=== PATIENT | female | born 1980 | race Caucasian/White ===

== ENCOUNTER → 2019-10-27 12:39 | Outpatient (CLI) | payer BC, SELFPAY | PROVIDERS: Visit Provider Obstetrics & Gynecology | DX: Z11.59 Encounter for screening for other viral diseases (principal) | CPT/HCPCS: 87635; G2023; U0003 ==

== ENCOUNTER 2019-11-02 07:03 | Inpatient (IN) | payer BC, SELFPAY ==
[2019-11-02] VITALS (43 sets, daily range): BP systolic 100–137; BP diastolic 56–87; PULSE 69–118; RESP 18; TEMP 36.3–37.4; O2SAT 81–100; BMI 30.4
[2019-11-02] MEDS: Lactated Ringers 1,000 ML 50 ML IV (07:50)
[2019-11-02] MEDS: Lactated Ringers 500 ML 999 ML IV ×3 (07:52→17:41)
--- NOTE | 2019-11-02 08:06 | PCM.HP.OB ---
- Problem List (1) 39 weeks gestation of Status: Acute (2) resulting from assisted reproductive technology Status: Acute (3) AMA (advanced maternal age) multigravida 35+ Status: Acute History Date of Admission: 11/02/19 Final BERTRAND: 11/09/19 Gestational age: 39 Weeks and 0 Days History of this : This is a 39 year-old, G 5, P 3013, at 39 weeks gestational age who presents for scheduled induction for AMA. Allergies No Known Allergies Allergy (Verified 11/11/16 11:44) Home Medications: Home Medications Prenatabs FA 1 tab PO DAILY 11/02/19 Smoking Status: Former smoker Number of Fetus(es): 1 NST - FHR Rate Baby A FHR Category:: Category I History Past Pregnancies: Past Pregnancies Delivery Date Name GA/ Weeks Outcome Route Wt Infant Sex Labor Length Anesthesia Delivery Location Provider FOB Labs: GBS neg See [facility] record Expected Delivery Method: Spontaneous Vaginal Physical Exam Vitals: Vital Signs Temp Pulse BP Pulse Ox 97.4 F L 91 122/87 H 98 11/02/19 07:26 11/02/19 07:26 11/02/19 07:26 11/02/19 07:26 General: Alert, No apparent distress HEENT: Atraumatic Abdomen: Soft, Gravid Extremities:: No edema Neurological: Neuro grossly intact HEAD SCORER: Normal external genitalia Estimated gestational size: Appropriate for gestational size Presentation: Cephalic Cervix Dilation (cm): 1.5 Station: -2 Effacement (%): 60 Assessment/Plan All Active Problems 39 weeks gestation of (Acute) resulting from assisted reproductive technology (Acute) AMA (advanced maternal age) multigravida 35+ (Acute) This is a 39 year-old, G 5, P 3013, at 39 weeks gestational age who presents for scheduled induction for AMA. - Admit for routine intrapartum care - GBS negative - Pitocin - EFW anticipated to be < 4500g and pelvis adequate. Anticipate
[2019-11-02 08:07] LABS: Absolute Neutrophil Count 9.2 X10^3/uL (2.0-7.7); Basophil# 0.03 X10^3/uL; Basophil% 0.3 % (0-1); Eosinophil# 0.06 X10^3/uL; Eosinophils% 0.5 % (0-5); Hemoglobin 10.6 g/dL (12.0-15.0); Lymphocyte % 12.2 % (19-41); Mean Corp Hgb Conc 30.3 g/dL (32-36); Mean Corpuscular Hgb 24.8 pg (27.0-32.0); Mean Platelet Vol. 12.7 fl (6.2-12.0); Monocyte# 0.75 X10^3/uL; Monocyte% 6.5 % (0-10); NRBC Flagged by Analyzer 0 % (0-5); Neutrophil # 9.22 X10^3/uL (2.7-7.7); Platelet Count 188 K/mm3 (150-450); RBC Distribution Width CV 14.8 % (11.6-14.6); RBC Distribution Width SD 44.3 fl (35.1-43.9); Red Blood Count 4.27 M/mm3 (4.2-5.4); White Blood Count 11.5 K/mm3 (4.4-11.0)
[2019-11-02] MEDS: Oxytocin 30 units/NS 500 ml 30 UNITS/500 ML IV.SOLN IV (08:10)
[2019-11-02] MEDS: fentaNYL-bupivacaine (epidural) 100 ML BAG EPIDURAL ×2 (09:45→14:13)
--- NOTE | 2019-11-02 11:28 | PCM.PN.BLA ---
Progress Note Pt comfortable with epidural. Cvx 2/50/-2, head well applied. AROM performed for clear fluid. IUPC and FSE placed. Continue pit induction. STROKE Vital Signs/Narrative: Vital Signs Temp Pulse BP Pulse Ox 11/02/19 11:27 85 105/64 11/02/19 10:40 75 120/71 98 11/02/19 10:39 97.5 F L 11/02/19 10:15 78 126/73 H 11/02/19 10:11 91 118/70 11/02/19 10:04 89 113/66 11/02/19 10:03 98 11/02/19 09:59 113 H 121/72 H 11/02/19 09:58 98 11/02/19 09:55 87 120/69 11/02/19 09:53 86 99 11/02/19 09:49 96 109/65 11/02/19 09:48 102 H 99 11/02/19 09:47 98.4 F 11/02/19 09:46 88 114/66 11/02/19 09:42 86 99 11/02/19 09:37 84 100 11/02/19 09:34 82 125/79 H 11/02/19 09:33 83 89 11/02/19 09:29 82 119/72
[2019-11-02] MEDS: Lactated Ringers 1,000 ML 200 ML IV (13:12)
[2019-11-02] MEDS: Mag Hydrox/Al Hydrox/Simeth 30 ML UDC PO (17:46)
[2019-11-02] MEDS: Oxytocin 30 units/NS 500 ml 30 UNITS/500 ML IV.SOLN 334 UNITS IV (19:36)
--- NOTE | 2019-11-02 20:08 | PCM.OPRPT ---
Problem List (1) 39 weeks gestation of Status: Acute (2) resulting from assisted reproductive technology Status: Acute (3) AMA (advanced maternal age) multigravida 35+ Status: Acute Report of Operation Date of Procedure: 11/02/19 Pre-Operative Diagnosis: 39 week gestation, AMA, multiparous patient, by ART Post-Operative Diagnosis: As above Surgery/Procedure Performed:: Description of Surgical Findings:: VFI in OA position. Normal appearing and intact placenta with 3 VC. 1st degree laceration Type of Anesthesia:: Epidural Special Medications: None Specimen's removed: Placenta Drains: Olivares Estimated Blood Loss (mL): 300 Description of Procedure: The patient was complete and pushing. Variable decelerations were noted with pushing, with there was moderate variability in between. A small midline episiotomy was made and immediately after the episiotomy the head of the infant was delivered in occiput anterior position. A loose nuchal cord x 1 was reduced. The shoulders and the body of the infant were easily delivered without any excessive traction, force or delay. Viable female infant was placed on maternal abdomen. The cord was clamped and cut after a 60 sec delay by FOB. The placenta was delivered with fundal massage. The placenta was noted to be normal-appearing with a three-vessel cord. The uterus was explored x1. The fundus was firm and bleeding was hemostatic. A first-degree laceration was repaired with 3-0 Vicryl in usual fashion. Instrument sponge counts were correct. Vaginal sweep was performed. Grafts/Implants Used: None - Complications None - Admit VTE Documentation VTE Present on Admission: No Vaginal Delivery Maternal Presentation: Medically Indicated Induction Method of Induction: Pitocin, Amniotomy Amniotic Membrane Rupture Type: Spontaneous Amniotic Fluid Description: Clear Final BERTRAND: 11/09/19 Gestational age: 39 Weeks and 0 Days Date of Procedure: 11/02/19 Surgery/ Procedure Performed: Spontaneous Vaginal Delivery Type of Anesthesia: Epidural Presentation: Vertex Placental Delivery Description: Expressed Cord Vessel Description: 3 Vessels Nuchal Cord Compression: Without compression Cord Entanglement: Around neck x 1, loose Infant A gender: Female (1 minute): 8 (5 minute): 9 Episiotomy Description: Midline Laceration: 1st degree Medications given after delivery: IV Pitocin Complications: None
[2019-11-03 04:45] VITALS: BP 120/72; PULSE 81; RESP 18; TEMP 37
--- NOTE | 2019-11-03 07:56 | PN.OBGYN_ITS ---
Patient Problems: Active and Suspected Problems 39 weeks gestation of (Acute) resulting from assisted reproductive technology (Acute) AMA (advanced maternal age) multigravida 35+ (Acute) Subjective: Pt is doing well. Denies lightheadedness, dizziness, chest pain, shortness of breath, leg pain. Lochia normal. She is ambulating and voiding without difficulty. Tolerating regular diet without nausea or vomiting. - Physical Exam Vitals/I&O's: Vital Signs Temp Pulse Resp BP Pulse Ox 97.9 F 82 18 109/59 L 100 11/02/19 23:48 11/02/19 23:48 11/02/19 23:48 11/02/19 23:48 11/02/19 17:48 Oxygen Delivery Method Room Air Weight: 200 lb 6.403 oz Body Mass Index (BMI) 30.4 Intake and Output for Last 24 Hours 11/01/19 11/02/19 11/03/19 23:59 23:59 23:59 Intake Total 4831.01 / 4831.01 Output Total 2600 / 2600 Balance 2231.01 / 2231.01 General: Alert HEENT: Atraumatic Abdomen: Soft, Non Tender, - - FF@U Extremities: No edema, No Calf Tenderness Skin: No rashes Neurological: Neuro grossly intact Psych/Mental Status: Normal Affect, Appropriate Laboratory Results 11/02/19 07:55: WBC 11.5 H, RBC 4.27, Hgb 10.6 L, Hct 35.0 L, MCV 82.0, MCH 24.8 L, MCHC 30.3 L, RDW Std Deviation 44.3 H, RDW Coeff of Zacarias 14.8 H, Plt Count 188, MPV 12.7 H, Immature Gran % (Auto) 0.500, Neut % (Auto) 80.0 H, Lymph % (Auto) 12.2 L, [place] % (Auto) 6.5, Eos % (Auto) 0.5, Baso % (Auto) 0.3, Absolute Neuts (auto) 9.2 H, Absolute Lymphs (auto) 1.40, Nucleated RBC % 0 11/02/19 07:55: Blood Type A POSITIVE, Antibody Screen NEGATIVE Current Medications Acetaminophen (Tylenol) 1,000 mg PO Q8H PRN PRN PRN Reason: Pain Score 1-3/10 Bisacodyl (Dulcolax) 10 mg RECTAL UD PRN PRN Reason: If no BM Dibucaine (Dibucaine) 1 applic TOPICAL TID PRN PRN; Protocol PRN Reason: Discomfort Hydrocortisone (Hytone) 1 applic TOPICAL TID PRN PRN; Protocol PRN Reason: Discomfort Ibuprofen (Motrin) 600 mg PO Q6H PRN PRN PRN Reason: Pain Score 1-3/10 Methylergonovine Maleate (Methergine) 0.2 mg IM X1 PRN PRN Reason: Excess bleeding/uterine atony Ondansetron HCl (Zofran) 4 mg IV Q4H PRN PRN PRN Reason: Nausea Senna/Docusate Sodium (Senokot-S, Kayla-Colace) 1 - 2 tablet PO DAILY PRN PRN PRN Reason: Constipation Simethicone (Mylicon) 80 mg PO PCHS PRN PRN Reason: Indigestion/Stomach pain Sodium Chloride () 5 - 15 ml IV UD PRN PRN Reason: SALINE FLUSH Medical Necessity - Tobacco Use Smoking Status: Former smoker Assessment/Plan All Active Problems 39 weeks gestation of (Acute) resulting from assisted reproductive technology (Acute) AMA (advanced maternal age) multigravida 35+ (Acute) Pt is day 1 from a spontaneous vaginal delivery. She is doing well and desires to go home. Discharge instructions and follow-up reviewed.
--- NOTE | 2019-11-03 07:57 | DCINST_ITS ---
Discharge Diet: No Restrictions Discharge Activity: May Shower, May Take a Tub Bath May resume sexual activity in: 6 weeks Ice area for (Minutes): 15 Weight Bearing Status: Weight bearing as tolerated Lifting Restrictions: Do not lift anything heavier than baby for 4 weeks Call your doctor if you observe: Fever of 101 or Higher, Inability to urinate, Inability to have a bowel movement, Using more than one pad per hour, Shortness of breath, Dizziness, Fainting spells, Chest pain, Calf discomfort, Uncontrolled pain Cleanse incision/area with: Soap & Water Additional Instructions: If you experience any of the following, contact your healthcare provider. * Bleeding that soaks a pad every hour for 2 hours * Fever 100.4 or higher * Unrelieved incision or abdominal pain * Swelling, redness, discharge or bleeding from your incision or episiotomy site * Your incision begins to separate * Problems urinating (including inability to urinate or burning while urinating). * Visual changes * Severe headache * Flu-like symptoms * Pain or redness in one of both of your breasts * Pain, warmth, tenderness or swelling in your legs, especially the calf area * Frequent nausea and vomiting * Symptoms of depression or anxiety If you experience any of the following, call 911 or go to the nearest Emergency Room. * Chest pain * Problems breathing * Seizure activity * Partial or complete paralysis of a body part, slurred speech, weakness or drooping of the face, or a sudden inability to walk or hold your balance Allergies/Adverse Reactions: Allergies No Known Allergies Allergy (Verified 11/11/16 11:44) Medications to take at Discharge Prenatabs FA 1 tab PO DAILY 11/02/19 Please Follow Up With: Denise Martell DO When: 6 week . Can also do a 1-2 week virtual visit Primary Care Physician: Care Physician,No Primary [Primary Care Provider] - Test Results: Test results from this visit will be discussed in further detail at your follow- up appointment, if applicable.
[2019-11-03 08:00] VITALS: BP 118/72; PULSE 74; RESP 15; TEMP 36.6
[2019-11-03] MEDS: Ibuprofen 600 MG Tablet PO ×2 (11:19→19:22)
[2019-11-03 12:30] VITALS: BP 111/70; PULSE 74; RESP 15; TEMP 37.1
[2019-11-03 17:30] VITALS: BP 115/63; PULSE 93; RESP 16; TEMP 36.4
== END 2019-11-03 21:00 | disposition home or self-care (01) | DRG 807 ==
PROVIDERS: Obstetrics & Gynecology; Admitting Provider Obstetrics & Gynecology; Visit Provider Obstetrics & Gynecology
DX: O69.81X0 Labor and delivery complicated by cord around neck, without compression, not applicable or unspecified (principal); O76 Abnormality in fetal heart rate and rhythm complicating labor and delivery; O70.0 First degree perineal laceration during delivery; Z87.891 Personal history of nicotine dependence; Z3A.39 39 weeks gestation of pregnancy; Z37.0 Single live birth
CPT/HCPCS: 59025; 59050; 85025; 86850; 86900; 86901; 99218; J7120; G0378